=== PATIENT | female | born 1955 | race Caucasian/White ===

== ENCOUNTER → 2016-12-15 | Outpatient (CLI) | payer OTHER ==
--- NOTE | 2016-12-15 16:04 | KCIC ---
EXAM: Bilateral knees, standing view; bilateral hands, single view; bilateral feet, single view; cervical spine, single view. HISTORY: Arthritis. Pain. COMPARISON: None. FINDINGS: Bilateral knees: There is medial compartment joint space narrowing and tricompartmental spurring. There is suggestion of bilateral genu valgus. Bilateral feet: Oblique views of both feet are obtained. There is no acute fracture, dislocation or subluxation. There is internal fixation of left medial and lateral malleolar fractures. Bilateral hands: Frontal views of both hands are obtained. There is no fracture, dislocation or subluxation. The left radiocarpal joint is excluded from the [id number]. Pelvis: A frontal view of the pelvis is obtained. There is no fracture, dislocation or subluxation. There is degenerative change of the lower lumbar levels. Cervical spine: A lateral view of the cervical spine was obtained. There is degenerative endplate remodeling with disc space narrowing and osteophytosis primarily at C5-C6, and to lesser extent, C4-C5 and C6-C7. There is no fracture. There is facet arthropathy at multiple levels. IMPRESSION: 1. No acute osseous finding. 2. Mild medial compartment predominant tricompartmental osteoarthrosis of both knees with suspected mild genu valgus. 3. Degenerative change within the cervical spine, predominantly at C5-C6. 4. Degenerative change of the lower lumbar levels, incompletely evaluated on the current exam. Electronically signed by: Patricia Houser MD (12/15/2016 4:00 PM) [id number]
--- NOTE | 2016-12-15 16:04 | KCIC ---
EXAM: Bilateral knees, standing view; bilateral hands, single view; bilateral feet, single view; cervical spine, single view. HISTORY: Arthritis. Pain. COMPARISON: None. FINDINGS: Bilateral knees: There is medial compartment joint space narrowing and tricompartmental spurring. There is suggestion of bilateral genu valgus. Bilateral feet: Oblique views of both feet are obtained. There is no acute fracture, dislocation or subluxation. There is internal fixation of left medial and lateral malleolar fractures. Bilateral hands: Frontal views of both hands are obtained. There is no fracture, dislocation or subluxation. The left radiocarpal joint is excluded from the [id number]. Pelvis: A frontal view of the pelvis is obtained. There is no fracture, dislocation or subluxation. There is degenerative change of the lower lumbar levels. Cervical spine: A lateral view of the cervical spine was obtained. There is degenerative endplate remodeling with disc space narrowing and osteophytosis primarily at C5-C6, and to lesser extent, C4-C5 and C6-C7. There is no fracture. There is facet arthropathy at multiple levels. IMPRESSION: 1. No acute osseous finding. 2. Mild medial compartment predominant tricompartmental osteoarthrosis of both knees with suspected mild genu valgus. 3. Degenerative change within the cervical spine, predominantly at C5-C6. 4. Degenerative change of the lower lumbar levels, incompletely evaluated on the current exam. Electronically signed by: Patricia Houser MD (12/15/2016 4:00 PM) [email or web address]
--- NOTE | 2016-12-15 16:04 | KCIC ---
EXAM: Bilateral knees, standing view; bilateral hands, single view; bilateral feet, single view; cervical spine, single view. HISTORY: Arthritis. Pain. COMPARISON: None. FINDINGS: Bilateral knees: There is medial compartment joint space narrowing and tricompartmental spurring. There is suggestion of bilateral genu valgus. Bilateral feet: Oblique views of both feet are obtained. There is no acute fracture, dislocation or subluxation. There is internal fixation of left medial and lateral malleolar fractures. Bilateral hands: Frontal views of both hands are obtained. There is no fracture, dislocation or subluxation. The left radiocarpal joint is excluded from the [id number]. Pelvis: A frontal view of the pelvis is obtained. There is no fracture, dislocation or subluxation. There is degenerative change of the lower lumbar levels. Cervical spine: A lateral view of the cervical spine was obtained. There is degenerative endplate remodeling with disc space narrowing and osteophytosis primarily at C5-C6, and to lesser extent, C4-C5 and C6-C7. There is no fracture. There is facet arthropathy at multiple levels. IMPRESSION: 1. No acute osseous finding. 2. Mild medial compartment predominant tricompartmental osteoarthrosis of both knees with suspected mild genu valgus. 3. Degenerative change within the cervical spine, predominantly at C5-C6. 4. Degenerative change of the lower lumbar levels, incompletely evaluated on the current exam. Electronically signed by: Patricia Houser MD (12/15/2016 4:00 PM) [id number]
--- NOTE | 2016-12-15 16:04 | KCIC ---
EXAM: Bilateral knees, standing view; bilateral hands, single view; bilateral feet, single view; cervical spine, single view. HISTORY: Arthritis. Pain. COMPARISON: None. FINDINGS: Bilateral knees: There is medial compartment joint space narrowing and tricompartmental spurring. There is suggestion of bilateral genu valgus. Bilateral feet: Oblique views of both feet are obtained. There is no acute fracture, dislocation or subluxation. There is internal fixation of left medial and lateral malleolar fractures. Bilateral hands: Frontal views of both hands are obtained. There is no fracture, dislocation or subluxation. The left radiocarpal joint is excluded from the [id number]. Pelvis: A frontal view of the pelvis is obtained. There is no fracture, dislocation or subluxation. There is degenerative change of the lower lumbar levels. Cervical spine: A lateral view of the cervical spine was obtained. There is degenerative endplate remodeling with disc space narrowing and osteophytosis primarily at C5-C6, and to lesser extent, C4-C5 and C6-C7. There is no fracture. There is facet arthropathy at multiple levels. IMPRESSION: 1. No acute osseous finding. 2. Mild medial compartment predominant tricompartmental osteoarthrosis of both knees with suspected mild genu valgus. 3. Degenerative change within the cervical spine, predominantly at C5-C6. 4. Degenerative change of the lower lumbar levels, incompletely evaluated on the current exam. Electronically signed by: Patricia Houser MD (12/15/2016 4:00 PM) [email or web address]
== END | disposition home or self-care (01) ==
LOC: KCIC 14:47
PROVIDERS: ATTEND Internal Medicine Rheumatology
DX: M17.0 Bilateral primary osteoarthritis of knee (principal); M47.892 Other spondylosis, cervical region; M47.896 Other spondylosis, lumbar region
CPT/HCPCS: 72020; 72170; 73120; 73565; 73620

== ENCOUNTER → 2018-07-31 | Outpatient (CLI) | payer OTHER ==
--- NOTE | 2018-07-31 17:31 | KCIC ---
KNEE BILAT 2V History: Osteoarthritis. Rheumatoid arthritis. Chronic bilateral knee pain. Comparison is made with single view AP image of each knee from 12/15/2016. Right knee Tricompartmental degenerative spurring. Mild medial compartment narrowing appears similar to the prior study. Lateral compartment osteophytes may be slightly larger. No acute fracture or aggressive bone destruction. No evidence of joint effusion or significant soft tissue abnormality. Left knee Tricompartmental degenerative spurring. This may be slightly worse. Mild narrowing at the medial joint. No acute fracture or aggressive bone destruction. No acute soft tissue abnormality. IMPRESSION: Primary osteoarthritis. Electronically signed by: Dillan Hou MD (07/31/2018 5:28 PM) [email or web address]
== END | disposition home or self-care (01) ==
LOC: KCIC 13:57
DX: M17.0 Bilateral primary osteoarthritis of knee (principal); M25.761 Osteophyte, right knee; M76.892 Other specified enthesopathies of left lower limb, excluding foot; M06.9 Rheumatoid arthritis, unspecified
CPT/HCPCS: 73560

== ENCOUNTER → 2020-07-16 | Outpatient (CLI) | payer MEDICARE, OTHER ==
[2019-04-14 11:21] VITALS: BP 158/75
== END ==
LOC: SPEC 13:53
PROVIDERS: ATTEND Podiatrist
DX: L03.031 Cellulitis of right toe (principal)
CPT/HCPCS: 87071; 87075